=== PATIENT | female | born 1970 | race Caucasian/White ===

== ENCOUNTER 2020-11-07 11:50 | Outpatient (CLI) | payer OTHER, SELFPAY ==
--- NOTE | ~2020-11-07 | MM_ITS ---
EXAMINATION: MM screening chiquita BI w matteo HISTORY: Screening mammogram TECHNIQUE: Craniocaudal and mediolateral oblique 3-D tomosynthesis images were obtained and synthetic 2-D images were generated. CAD analysis was submitted and interpreted. COMPARISON: No prior mammogram is available for comparison at this institution. BREAST PARENCHYMAL COMPOSITION: The breasts are almost entirely fatty. FINDINGS: There is no evidence of suspicious mass, calcification, or architectural distortion to sugg est malignancy in either breast. IMPRESSION: 1. No mammographic evidence of malignancy. 2. Recommend routine screening mammography in one year. BI-RADS Category 1: Negative Reviewed, dictated and finalized at location A. [employer]
== END 2020-11-07 11:51 | disposition home or self-care (01) ==
LOC: ANHIMG 11:54
DX: Z12.31 Encounter for screening mammogram for malignant neoplasm of breast (principal)
CPT/HCPCS: 77063; 77067

== ENCOUNTER 2021-12-30 09:05 | Outpatient (CLI) | payer OTHER, SELFPAY ==
--- NOTE | ~2021-12-30 | MM_ITS ---
EXAMINATION: MM screening chqiuita BI w matteo HISTORY: Screening mammogram TECHNIQUE: Craniocaudal and mediolateral oblique 3-D tomosynthesis images were obtained and synthetic 2-D images were generated. CAD analysis was submitted and interpreted. COMPARISON: November 07, 2020 bilateral screening mammogram BREAST PARENCHYMAL COMPOSITION: The breasts are almost entirely fatty. FINDINGS: There is no evidence of suspicious mass, calcification, or architectural distortion to sugg est malignancy in either breast. There has been no suspicious interval change. IMPRESSION: 1. No mammographic evidence of malignancy. 2. Recommend routine screening mammography in one year. BI-RADS Category 1: Negative Reviewed, dictated and finalized at location A.
== END 2021-12-30 09:06 | disposition home or self-care (01) ==
LOC: ANHIMG 09:06
PROVIDERS: Visit Provider Family Medicine
DX: Z12.31 Encounter for screening mammogram for malignant neoplasm of breast (principal)
CPT/HCPCS: 77063; 77067

== ENCOUNTER 2024-06-16 19:14 | Emergency (ER) | payer OTHER, SELFPAY ==
--- NOTE | ~2024-06-16 | XR_ITS ---
EXAMINATION: XR tibia fibula RT 2V DATE: 06/16/2024 20:37 INDICATION: Right russo pain. Fall. TECHNIQUE: 2 views of right tibia and fibula on 3 radiographs were obtained. COMPARISON: None. FINDINGS: Alignment is normal. No fracture. There is mild knee joint osteoarthritis. No knee joint ef fusion. IMPRESSION: 1. Mild knee joint osteoarthritis. Reviewed, dictated and finalized at location A.
--- NOTE | ~2024-06-16 | XR_ITS ---
EXAMINATION: XR ankle RT min 3V DATE: 06/16/2024 20:37 INDICATION: Right foot injury. TECHNIQUE: 3 views of right ankle were obtained. COMPARISON: None. FINDINGS: Alignment is normal. No fracture. There is mild osteoarthritis of talonavicular joint. Ankl e soft tissue swelling is noted. IMPRESSION: 1. No fracture. Reviewed, dictated and finalized at location A. IMPRESSION: 1. No fracture.
--- NOTE | ~2024-06-16 | XR_ITS ---
EXAMINATION: XR foot RT 2V DATE: 06/16/2024 20:37 INDICATION: Right foot injury. TECHNIQUE: 2 views of right foot were obtained. COMPARISON: None. FINDINGS: Alignment is normal. No fracture. There is mild osteoarthritis of talonavicular joint, firs t metatarsophalangeal joint, and some of the interphalangeal joints. IMPRESSION: 1. Mild polyarticular osteoarthritis. Reviewed, dictated and finalized at location A.
[2024-06-16 19:16] VITALS: BP 157/85; PULSE 95; RESP 16; TEMP 36.6; O2SAT 98
--- NOTE | 2024-06-16 21:44 | ED.LOWEXIN ---
HPI - Extremity Injury (Lower) General Chief Complaint: Extremity Injury, Lower Stated Complaint: fell on Thursday, right knee swelling to right foot Time Seen by Provider: 06/16/24 20:20 Source: patient Mode of arrival: ambulatory Limitations: no limitations History of Present Illness HPI Narrative: This is a 53-year-old female who presents to the ED with chief complaint of right knee injury that occurred 4 days ago. Patient reports that she started to have a lot of edema in the lower leg and bruising to the right foot and ankle that has developed. Reports the foot, ankle and russo are without pain. Pain is located throughout the knee joint. States she is able to bear weight but range of motion is difficulty to swelling and pain. States the swelling is significantly smaller compared to initial injury. Denies fevers, chills, numbness, weakness Review of Systems Review of Systems: All systems as dictated in HPI Exam Narrative: GENERAL: Well-appearing, well-nourished, and in no acute distress. HEAD: Normocephalic, atraumatic. MSK: Left knee and lower extremity are normal. Right knee with moderate swelling. No deformity. Dependent bruising and edema noted throughout the right ankle and foot. Neurovascular intact distally SKIN: Warm, dry, no rash. Ecchymosis present NEURO: Alert and oriented x4. No focal deficits. PSYCH: Normal mood and affect. Course Vital Signs Vital signs: Vital Signs Temperature 98 F 06/16/24 19:16 Pulse Rate 95 06/16/24 19:16 Respiratory Rate 16 06/16/24 19:16 Blood Pressure 157/85 H 06/16/24 19:16 Pulse Oximetry 98 06/16/24 19:16 Oxygen Delivery Room Air 06/16/24 19:16 Temperature 97.0 F L 06/16/24 21:45 Pulse Rate 74 06/16/24 21:45 Respiratory Rate 16 06/16/24 21:45 Blood Pressure 150/83 H 06/16/24 21:45 Pulse Oximetry 98 06/16/24 21:45 Oxygen Delivery Room Air 06/16/24 19:16 MDM - Extremity Injury (Lower) MDM Narrative Medical decision making narrative: This is a 53 yo F who presents to the ED for chief complaint of right lower extremity bruising, swell after injury 4 days ago. Vitals are normal. Exam shows dependent edema, ecchymosis of the foot. Mild swelling and tenderness to the right knee but patient is able to bear weight. Imaging of the right knee, tib-fib, ankle and foot are all clear of any fracture. No acute osseous findings. Most likely suffered a soft tissue injury of the knee and is having dependent bruising and swelling from this. Will give orthopedic referral. Eren wrap given here. Patient will be discharged in stable condition. Supportive measures discussed and return precautions given. Patient is understanding and agreeable with plan for discharge with PCP follow-up. Discharge Plan Discharge Clinical Impression: Injury of knee, right Patient Disposition: Home, Self-Care Condition: Stable Instructions: Antibiotic Form Additional Instructions: Your exam and imaging do not show any fractures. May be a soft tissue injury in the right knee causing a they swelling and pain. Please take ibuprofen 600 mg every 6 hours as needed for pain control and follow-up with the ortho. If you have any new or worsening symptoms please return to the ER for further evaluation. Follow-up/Referrals: Neal,JOSE D Hernandez [Primary Care Provider] - Deep Koenig MD [Physician] - Time of Disposition: 21:47
[2024-06-16 21:45] VITALS: BP 150/83; PULSE 74; RESP 16; TEMP 36.1; O2SAT 98
== END 2024-06-16 21:50 | disposition home or self-care (01) ==
PROVIDERS: Emergency Provider Physician Assistant; PCP Family Medicine
DX: S89.91XA Unspecified injury of right lower leg, initial encounter (principal); M19.071 Primary osteoarthritis, right ankle and foot; M17.11 Unilateral primary osteoarthritis, right knee; W19.XXXA Unspecified fall, initial encounter
CPT/HCPCS: 73590; 73610; 73620; 99284

== ENCOUNTER 2025-01-04 11:57 | Emergency (ER) | payer OTHER, SELFPAY ==
[2025-01-04 12:06] VITALS: BP 139/68; PULSE 80; RESP 18; TEMP 36.7; O2SAT 96
--- NOTE | 2025-01-04 12:34 | ED.EAR ---
HPI - Ear Problem General Chief complaint: Ear Stated complaint: ear pain Time Seen by Provider: 01/04/25 12:34 Source: patient Mode of arrival: ambulatory Limitations: no limitations History of Present Illness HPI Narrative: Here for right ear pain. She reports pain started last night around 7:00 p.m.. She reports pain in the right ear has radiated to her jaw Today. She denies any fevers. Denies recent illness. Denies any sick contacts. works in a factory and wears ear plugs. Related Data Home Medications ?Medication ?Instructions ?Recorded ?Confirmed ?Last Taken ?Type amlodipine 10 mg tablet mg 01/04/25 Unknown History ergocalciferol (vitamin D2) 1,250 01/04/25 Unknown History mcg (50,000 unit) capsule escitalopram oxalate 10 mg tablet mg 01/04/25 Unknown History ferrous sulfate 325 mg (65 mg mg 01/04/25 Unknown History iron) tablet (FeroSul) levothyroxine 75 mcg tablet mcg 01/04/25 Unknown History (Synthroid) meloxicam 15 mg tablet mg 01/04/25 Unknown History rosuvastatin 20 mg tablet mg 01/04/25 Unknown History Allergies Allergy/AdvReac Type Severity Reaction Status Date / Time No Known Allergies Allergy Verified 01/04/25 12:07 Review of Systems Review of Systems: CONSTITUTIONAL: Denies fever, chills, or sweats. EYES: Denies visual changes, redness, or discharge. ENT: Denies rhinorrhea, congestion, sore throat. +Right ear pain as noted in HPI CARDIOVASCULAR: Denies chest pain, palpitations, or edema. RESPIRATORY: Denies cough or dyspnea. GASTROINTESTINAL: Denies abdominal pain, nausea, vomiting, or diarrhea. GENITOURINARY: Denies dysuria or hematuria. SKIN: Denies rash or itching. MUSCULOSKELETAL: Denies back pain, joint pain, or myalgia. NEUROLOGIC: Denies headache, numbness, or weakness. PSYCHIATRIC: Denies anxiety or depression. All other systems reviewed are negative, except as documented in HPI. PMFSH Comments At time of signature, I have reviewed and agree with nursing past medical, surgical, social and family history unless otherwise noted. Please see nursing chart for further information. There is no relevant family history pertinent to the presenting complaint. Exam Narrative: GENERAL: This is a well-nourished, obese patient, in no apparent distress. HEAD: normocephalic, atraumatic. EYES: Sclera clear/white. EARS: External ears normal, auditory canals clear and without drainage, Bilateral TMs erythematous with right TM bulging without perforation. NOSE: External nose normal with no obvious nasal discharge, nares without redness, no rhinorrhea. THROAT: Mucous membranes moist, posterior pharynx clear. NECK: Neck supple, non-tender without lymphadenopathy. CARDIOVASCULAR: Regular rate and rhythm without murmurs, gallops, or rubs. RESPIRATORY: Clear to auscultation. Breath sounds equal bilaterally. No wheezes, rales, or rhonchi. SKIN: warm, Dry, intact with no suspicious lesions or rash, good texture and turgor. NEURO: awake, alert, and oriented to person, place and time. There were no obvious focal neurologic abnormalities. EXTREMITIES: No joint tenderness, effusion, or edema noted. Course Course Level of Care: Express Care Visit Vital Signs Vital signs: Vital Signs Temperature 36.7 C 01/04/25 12:06 Pulse Rate 80 01/04/25 12:06 Respiratory Rate 18 01/04/25 12:06 Blood Pressure 139/68 01/04/25 12:06 Pulse Oximetry 96 01/04/25 12:06 Oxygen Delivery Room Air 01/04/25 12:06 Temperature 36.7 C 01/04/25 12:06 Pulse Rate 80 01/04/25 12:06 Respiratory Rate 18 01/04/25 12:06 Blood Pressure 139/68 01/04/25 12:06 Pulse Oximetry 96 01/04/25 12:06 Oxygen Delivery Room Air 01/04/25 12:06 reviewed Medical Decision Making MDM Narrative Medical decision making narrative: Patient is aware of diagnosis, understands and agrees to treatment plan. Anticipatory guidance was given. Discussed physical exam findings with patient and reviewed prescriptions. Used shared decision making to discuss treatment Options. Patient verbalizes agreement with plan and verbalizes understanding. Patient agrees to follow-up as directed and is aware of reasons to seek care at the emergency department. Discharge instructions were reviewed with the patient, as well as provided in writing per nursing staff. All questions have been answered, and the patient denies any further questions related to discharge or discharge plan. Vital Signs Vital Signs: Vital Signs Temperature 36.7 C 01/04/25 12:06 Pulse Rate 80 01/04/25 12:06 Respiratory Rate 18 01/04/25 12:06 Blood Pressure 139/68 01/04/25 12:06 Pulse Oximetry 96 01/04/25 12:06 Oxygen Delivery Room Air 01/04/25 12:06 Temperature 36.7 C 01/04/25 12:06 Pulse Rate 80 01/04/25 12:06 Respiratory Rate 18 01/04/25 12:06 Blood Pressure 139/68 01/04/25 12:06 Pulse Oximetry 96 01/04/25 12:06 Oxygen Delivery Room Air 01/04/25 12:06 Reviewed Discharge Plan Discharge Clinical Impression: Otitis media Qualifiers: Otitis media type: suppurative Chronicity: acute Laterality: right Recurrence: non-recurrent Spontaneous tympanic membrane rupture: without spontaneous rupture Qualified Code(s): H66.001 - Acute suppurative otitis media without spontaneous rupture of ear drum, right ear Patient Disposition: Home Condition: Stable Instructions: Antibiotic Form, Ear Infection (ED) Additional Instructions: Take antibiotics as directed until complete. Follow printed instructions. You may use Tylenol and ibuprofen as directed on packaging for pain. Nutrition is important - eat small frequent meals. Get lots of rest and drink fluids. Call your Primary Care Doctor today to make a follow-up appointment. Go to the ER for any worsening symptoms or concerns. Patient Language: Sammarinese Prescriptions: New amoxicillin 875 mg tablet 875 mg PO Q12H 10 Days Qty: 20 0RF No Action meloxicam 15 mg tablet levothyroxine [Synthroid] 75 mcg tablet amlodipine 10 mg tablet ferrous sulfate [FeroSul] 325 mg (65 mg iron) tablet ergocalciferol (vitamin D2) 1,250 mcg (50,000 unit) capsule escitalopram oxalate 10 mg tablet rosuvastatin 20 mg tablet Follow-up/Referrals: Neal,JOSE D Hernandez [Primary Care Provider] - Stand Alone Forms: Work/School Release IP Time of Disposition: 12:46
--- OUTSIDE RECORDS SUMMARY | 2025-01-04 13:43 | XMS_ITS | Referral Summary ---
Author Organization [facility] at the Medical Office Building Address [address] [place] [id number] Care Team Providers Care Aerospace Manager Name Role Phone Mary De Jesus NP Primary Care Provider [phone] Encounters Date Type Department Care Team Description 12/29/2024 10:30 AM CDT Office Visit [facility] Primary Care at [address] [phone] Mary De Jesus NP Annual physical exam (Primary Dx); Hypertension, essential; Mixed hyperlipidemia; Vitamin D deficiency; Low ferritin; Class 2 obesity due to excess calories without serious comorbidity with body mass index (BMI) of 38.0 to 38.9 in adult; Severe obesity (HCC); Moderate episode of recurrent major depressive disorder (HCC); Subclinical hypothyroidism; Lymphedema of right lower extremity; Chronic venous insufficiency; Dysesthesia of multiple sites; Acute pain of right knee; Abnormal uterine bleeding; Bilateral groin pain; Need for vaccination; Encounter for screening mammogram for malignant neoplasm of breast 12/08/2024 Telephone [facility] Primary Care at [address] [phone] Mary De Jesus NP 11/24/2024 Telephone [facility] Primary Care at [address] [phone] Mary De Jesus NP 11/22/2024 Telephone [facility] Primary Care at [address] [phone] Mary De Jesus NP 11/22/2024 Telephone [facility] Primary Care at [address] [place] [address] Mary De Jesus BASEBALL HAND SEWER 11/16/2024 Telephone [facility] Primary Care at [address] [place] [address] Mary De Jesus, BASEBALL HAND SEWER 11/15/2024 9:30 AM [employer] Office Visit [facility] Primary Care at [address] [place] [address] Mary De Jesus, BASEBALL HAND SEWER Bilateral groin pain (Primary Dx); Abnormal uterine bleeding; Moderate episode of recurrent major depressive disorder (HCC); Vitamin D deficiency; Hypertension, essential; Class 2 obesity due to excess calories without serious comorbidity with body mass index (BMI) of 37.0 to 37.9 in adult; Severe obesity (HCC); Lymphedema of right lower extremity; Subclinical hypothyroidism; Low ferritin; Need for vaccination 11/11/2024 3:15 PM [employer] Therapy [facility] Medical Office Bldg 1 OP Physical Therapy [address] [place] [phone] Range, Elizabeth, PRINT BINDING AND FINISHING WORKER Edema of right lower leg (Primary Dx); Acute pain of right knee 11/11/2024 Plan of Care Documentation [facility] Medical Office Bldg 1 OP Physical Therapy [address] [place] [phone] 11/09/2024 2:45 PM [employer] Therapy [facility] Medical Office Bldg 1 OP Physical Therapy [address] [place] [phone] Bernadette Jack, PT Edema of right lower leg (Primary Dx); Acute pain of right knee 11/03/2024 9:45 AM [employer] Therapy [facility] Medical Office Bldg 1 OP Physical Therapy [address] [place] [phone] Bernadette Jack, PT Edema of right lower leg (Primary Dx); Acute pain of right knee 11/01/2024 12:45 PM [employer] Therapy [facility] Medical Office Bldg 1 OP Physical Therapy [address] [place] [phone] Range, Elizabeth, PRINT B[employer]ING AND FINISHING WORKER Edema of right lower leg (Primary Dx); Acute pain of right knee 10/27/2024 2:45 PM [employer] Therapy [facility] Medical Office Bldg 1 OP Physical Therapy [address] [place] [phone] Range, Elizabeth, PRINT B[employer]ING [employer] FINISHING WORKER Edema of right lower leg (Primary Dx); Acute pain of right knee 10/26/2024 Telephone [facility] Primary Care at [address] [phone] Mary De Jesus NP 10/25/2024 Telephone [facility] Primary Care at [address] [phone] Mary De Jesus NP Additional Services Or Orders 10/25/2024 9:45 AM [facility] Medical Office Bldg 1 OP Physical Therapy [address] [place] [phone] Bernadette Jack Tamiko, PT Edema of right lower leg (Primary Dx); Acute pain of right knee 10/21/2024 2:45 PM [facility] Medical Office Bldg 1 OP Physical Therapy [address] [place] [phone] Range, Elizabeth, PRINT B[employer]ING AND FINISHING WORKER Edema of right lower leg (Primary Dx); Acute pain of right knee 10/18/2024 3:15 PM [employer] [facility] Medical Office Bldg 1 OP Physical Therapy [address] [place] [phone] Range, Elizabeth, PRINT BINDING AND FINISHING WORKER Edema of right lower leg (Primary Dx); Acute pain of right knee 10/14/2024 9:45 AM [employer] [facility] Medical Office Bldg 1 OP Physical Therapy [address] [place] [phone] Bernadette Jack, PT Acute pain of right knee (Primary Dx); Edema of right lower leg 10/14/2024 9:15 AM [employer] Therapy [facility] Office [facility] 1 OP Physical Therapy [address] [place] [phone] Range, Elizabeth, PRINT BINDING AND FINISHING WORKER Acute pain of right knee (Primary Dx); Edema of right lower leg 10/12/2024 10:30 AM [employer] Office Visit [facility] Vascular at [address] [place] [address] Rod Nance MD Chronic venous insufficiency (Primary Dx); Pain and swelling of right lower extremity; Lymphedema of right lower extremity; Mixed hyperlipidemia; Hypertension, essential 10/11/2024 8:30 AM [facility] Therapy [facility] Office [facility] 1 OP Physical Therapy [address] [place] [phone] Range, Elizabeth, PRINT BINDING AND FINISHING WORKER Acute pain of right knee (Primary Dx); Edema of right lower leg 10/07/2024 10:45 AM [facility] Therapy [facility] Office [facility] 1 OP Physical Therapy [address] [place] [phone] Range, Elizabeth, PRINT B[employer]ING AND FINISHING WORKER Acute pain of right knee (Primary Dx); Edema of right lower leg from Last 3 Months Allergies No known active allergies Medications ascorbic acid (VITAMIN C) 250 mg tabletIndications: Iron deficiency Take 1 tablet (250 mg total) by mouth every other day With iron 45 tablet 3 4 Active Bacillus coagulans 250 million cell tablet,chewable Take by mouth Active miscellaneous medical supply miscIndications:Ed jacky of right lower leg,Edema of left lower leg 1 each daily Wear daily 2 each 5 Active levothyroxine (SYNTHROID) 75 mcg tabletIndications: Subclinical hypothyroidism Take 1 tablet (75 mcg total) by mouth daily 90 tablet 1 5 Active amLODIPine (NORVASC) 10 mg tablet Take 1 tablet (10 mg total) by mouth daily 90 tablet 1 5 025 Active escitalopram (LEXAPRO) 10 mg tabletIndications: Mild depression Take 1 tablet (10 mg total) by mouth daily 90 tablet 1 5 025 Active ferrous sulfate 325 mg (65 mg of elemental iron) tabletIndications: Iron Deficiency Anemia Take 325mg ferrous sulfate every other day. Take with 250mg ascorbic acid tablet of half a glass of orange juice to enhance absorption. Take two hours before, or four hours after, ingestion of antacids/heart burn. Take separately from calcium-contai jesenia foods and beverages (milk), calcium supplements, cereals, dietary fiber, tea, coffee, and eggs. 90 tablet 1 5 Active meloxicam (MOBIC) 15 mg tabletIndications: Bilateral groin pain Take 1 tablet (15 mg total) by mouth daily 90 tablet 1 5 025 Active rosuvastatin (CRESTOR) 20 mg tabletIndications: Mixed hyperlipidemia Take 1 tablet (20 mg total) by mouth daily 90 tablet 1 5 Active ergocalciferol (VITAMIN D) 50,000 unit capsuleIndications :Vitamin D deficiency Take 1 capsule (50,000 Units total) by mouth every 14 (fourteen) days TAKE 1 CAPSULE BY MOUTH EVERY OTHER WEEK 6 capsule 1 5 025 Active Active Problems Problem Noted Date Diagnosed Date Lymphedema of right lower extremity 11/16/2024 Assessment & Plan (12/29/2024 10:58 AM CDT): UncontrolIed Encouraged to keep legs elevated when able and wear compression stockings Assessment & Plan (11/16/2024 7:56 AM [employer]): UncontrolIed Encouraged to continue PT as recommended Awaiting compression stockings Abnormal uterine bleeding 11/16/2024 Assessment & Plan (12/29/2024 11:03 AM CDT): Uncontrolled Previously referred to gynecology, encouraged to call and make an apppointment Assessment & Plan (11/16/2024 7:56 AM [employer]): Explained likely premenopausal Referral made to gynecology Bilateral groin pain 11/16/2024 Assessment & Plan (12/29/2024 11:04 AM CDT): Controlled Continued on meloxicam Assessment & Plan (11/16/2024 7:58 AM [employer]): Reviewed xrays, CT scan, and venous doppler results of right LE w/patient Started on meloxicam Supportive care measures discussed Return precautions given Low ferritin 11/16/2024 Assessment & Plan (12/29/2024 10:47 AM CDT): Controlled Continued on ferrous sulfate daily Assessment & Plan (11/16/2024 8:01 AM [employer]): Controlled Continued on ferrous sulfate daily Severe obesity 11/15/2024 Assessment & Plan (12/29/2024 10:47 AM CDT): Worsened Encouraged to: Make healthy food choices, limiting intake of concentrated sweets, cholesterol, and saturated fat Monitor daily caloric intake and portion sizes Exercise most days of the week for a goal of at least 150 minutes of exercise per week Assessment & Plan (11/16/2024 7:54 AM [employer]): Improved Encouraged to: Make healthy food choices, limiting intake of concentrated sweets, cholesterol, and saturated fat Monitor daily caloric intake and portion sizes Exercise most days of the week for a goal of at least 150 minutes of exercise per week Chronic venous insufficiency 10/17/2024 Assessment & Plan (12/29/2024 10:57 AM CDT): UncontrolIed Encouraged to keep legs elevated when able and wear compression stockings Assessment & Plan (10/17/2024 3:05 PM [employer]): Clinically has some evidence of chronic venous insufficiency with the start of some lipodermatosclerosis. Her swelling has improved with resolution of what sounds like a traumatic hematoma. I discussed the importance of compression therapy, can follow up me as needed. Acute pain of right knee 07/01/2024 Assessment & Plan (12/29/2024 11:02 AM CDT): Controlled Continued on meloxicam Assessment & Plan (07/01/2024 4:10 PM CDT): Acute Reviewed ER report from [facility] dated 06/16/2024 Ordered MRI right knee Dysesthesia of multiple sites 04/05/2024 Assessment & Plan (12/29/2024 11:01 AM CDT): Controlled Continued on meloxicam 15 mg daily Can consider gabapentin, pregabalin, amitriptyline, or duloxetine if symptoms continue Assessment & Plan (04/05/2024 1:22 PM CDT): New diagnosis, affecting both legs and sometimes back Reviewed labs dated 11/12/2023, 01/06/2024, and 02/13/2024 Can consider gabapentin, pregabalin, amitriptyline, or duloxetine if symptoms continue Subclinical hypothyroidism 12/03/2023 Assessment & Plan (12/29/2024 10:45 AM CDT): Controlled Continued on levothyroxine Assessment & Plan (11/16/2024 8:00 AM [employer]): Controlled Continued on levothyroxine Assessment & Plan (12/03/2023 8:26 AM CDT): New diagnosis, symptomatic with reported fatigue and weight gain, although has recently lost weight Gave option to monitor or start medication, would like to start levothyroxine, Rx sent to pharmacy per request Advised to get previously ordered non-fasting lab work done in 4-8 weeks Need for vaccination 10/21/2022 Assessment & Plan (12/29/2024 10:45 AM CDT): Discussed screening/vaccination in depth and patient understands all risk and benefits associated with proposed therapies and currently declines, has been encouraged to call if changes mind. Assessment & Plan (11/16/2024 8:01 AM [employer]): Discussed screening/vaccination (hepatitis B series) in depth and patient understands all risk and benefits associated with proposed therapies and currently declines, has been encouraged to call if changes mind. Assessment & Plan (12/05/2023 11:47 AM CDT): Recommended Shingrix series, considering Assessment & Plan (10/21/2022 5:13 AM [employer]GR[employer]HER [employer]): Tdap given. Recurrent major depression 10/20/2022 Assessment & Plan (12/29/2024 10:54 AM CDT): Controlled Continued on Lexapro, declined increase in dose of medicaton Advised if suicidal ideation or thoughts of harming self or others, to go to ER and/or call [phone] for assistance, agreed to contract for safety Assessment & Plan (11/16/2024 7:55 AM [employer]GR[employer]HER [employer]): Controlled per patient report Reviewed PHQ-9=5, DARLYN-7=2 Continued on Lexapro, declined increase in dose of medicaton Advised if suicidal ideation or thoughts of harming self or others, to go to ER and/or call [phone] for assistance, agreed to contract for safety Assessment & Plan (12/03/2023 8:25 AM CDT): Chronic, controlled on medication Reviewed PHQ-9=6, DARLYN-7=3 Continued on Lexapro, declined increase in dose of medicaton Advised if suicidal ideation or thoughts of harming self or others, to go to ER and/or call [phone] for assistance, agreed to contract for safety Assessment & Plan (10/21/2022 5:07 AM [employer]): Chronic, stable, controlled with medication-continued on Lexapro, refills sent to pharmacy per patient request. PHQ-9=5, DARLYN-7=1 Encounter for well woman abdelrahman m with routine gynecological exam 12/07/2020 Assessment & Plan (12/07/2020 12:56 PM CDT): Well woman exam and cervical cancer screening done today with guidelines recommending pap smears for women 30-65 years old every 3 years or every 5 years if co- screening for HPV. Discussed mammogram screening yearly beginning at age 40 years. Encouraged to continue monthly breast self exams. Screening for human papillomavirus 12/07/2020 Assessment & Plan (12/07/2020 12:57 PM CDT): HPV screening done with cervical pap smear. Cervical cancer screening 12/07/2020 Assessment & Plan (12/07/2020 12:57 PM CDT): Cervical pap smear done today. Vitamin D deficiency 12/07/2020 Assessment & Plan (12/29/2024 10:45 AM CDT): Controlled Continued vitamin D5 05240 IU every other week Assessment & Plan (11/16/2024 7:54 AM [employer]): Controlled Continued on vitamin D 87236 international units every other week Assessment & Plan (05/30/2024 12:59 PM CDT): Stable, controlled with prescription supplementation Continued on vitamin D 60431 international units every other week Assessment & Plan (12/03/2023 7:50 AM CDT): Stable, controlled with prescription supplementation Continued on vitamin D 97184 international units every other week Assessment & Plan (10/21/2022 5:21 AM [employer]): Chronic, stable, controlled with prescription supplement-encouraged to continue vitamin-D 55009 IU every other week with a meal. Ordered vitamin-D 25 OH to be done prior to next visit. Assessment & Plan (10/19/2021 7:32 AM [employer]GR[employer]HER [employer]): Chronic, stable, improved at last check, on weekly [id number] on weekly vitamin-D and ordered nonfasting vitamin D level to re-evaluate efficacy of treatment. Assessment & Plan (04/13/2021 7:41 AM CDT): Chronic, improved-continued on vitamin D 50,000 international units weekly, refills sent to pharmacy. Will recheck vitamin D in approximately 4-6 months. Assessment & Plan (12/07/2020 12:58 PM CDT): Chronic, uncontrolled, recently started on weekly vitamin D supplementation-encouraged to continue weekly prescription vitamin D, ordered repeat vitamin D 25OH to be done in 6 months. Class 2 obesity due to exces s calories without serious comorbidity with body mass index (BMI) of 38.0 to 38.9 in adult 12/07/2020 Assessment & Plan (12/29/2024 10:45 AM CDT): Worsened Encouraged to: Make healthy food choices, limiting intake of concentrated sweets, cholesterol, and saturated fat Monitor daily caloric intake and portion sizes Exercise most days of the week for a goal of at least 150 minutes of exercise per week Assessment & Plan (11/16/2024 7:54 AM [employer]HER [employer]): Improved Encouraged to: Make healthy food choices, limiting intake of concentrated sweets, cholesterol, and saturated fat Monitor daily caloric intake and portion sizes Exercise most days of the week for a goal of at least 150 minutes of exercise per week Assessment & Plan (05/30/2024 1:17 PM CDT): Chronic, stable Encouraged to: Make healthy food choices, limiting intake of concentrated sweets, cholesterol, and saturated fat Monitor daily caloric intake and portion sizes Exercise most days of the week for a goal of at least 150 minutes of exercise per week Assessment & Plan (04/05/2024 1:24 PM CDT): Chronic, wprsened Encouraged to: Make healthy food choices, limiting intake of concentrated sweets, cholesterol, and saturated fat Monitor daily caloric intake and portion sizes Exercise most days of the week for a goal of at least 150 minutes of exercise per week Assessment & Plan (12/03/2023 7:47 AM CDT): Chronic, improved Encouraged to: Make healthy food choices, limiting intake of concentrated sweets, cholesterol, and saturated fat Monitor daily caloric intake and portion sizes Exercise most days of the week for a goal of at least 150 minutes of exercise per week Assessment & Plan (10/21/2022 5:12 AM [employer]): Chronic, worsening, without series comorbidity-encouraged to monitor daily caloric intake and portion sizes and to exercise most days of the week for a goal of at least 150 minutes per week. Assessment & Plan (12/07/2020 1:04 PM CDT): Chronic, slight improvement since last visit-encourage a diet low in saturated/animal fats and high in fruits, vegetables, legumes, whole grains, and nuts with goal to exercise for 15-20 minutes most days of the week. Annual physical exam 11/05/2020 Assessment & Plan (12/29/2024 10:44 AM CDT): Reviewed past and current medical history, surgical history, social history, family history, current medications, and allergies. The chart was updated to identify any changes in these areas. Assessment & Plan (12/03/2023 7:45 AM CDT): Reviewed past and current medical history, surgical history, social history, family history, current medications, and allergies. The chart was updated to identify any changes in these areas. A ROS and PE were performed. Medications and labs were ordered and referrals were made. Discussed screening colonoscopy, well woman exam/cervical cancer screening, screening mammogram, monthly breast self-exams, and recommended immunizations. Patient will follow-up in 6 months for further evaluation and management or sooner if needed. Assessment & Plan (10/21/2022 5:11 AM [employer]GR[employer]HER [employer]): Reviewed past and current medical history, surgical history, social history, family history, current medications, and allergies. A ROS and PE were performed. Medications were refilled and labs and a screening mammogram were ordered. Discussed well woman exam/cervical cancer screening, screening mammogram, monthly breast self-exams, and recommended immunizations. Patient will follow-up in 6 months for further evaluation and management or sooner if needed. Assessment & Plan (11/05/2020 11:41 AM STENOGR[employer]HER [employer]): Reviewed past and current medical history, surgical history, social history, family history, current medications, and allergies. A ROS and PE were performed. Medication and labs were ordered. Discussed screening colonoscopy (Cologuard ordered), well woman exam/cervical cancer screening (recommended at follow-up visit in 4 weeks), screening mammogram (order given), monthly breast self-exams, and recommended immunizations. Patient will follow-up in 4 weeks for further evaluation and management or sooner if needed. Hypertension, essential 11/05/2020 Assessment & Plan (12/29/2024 10:44 AM CDT): Controlled Continued on amlodipine 10 mg daily Assessment & Plan (11/16/2024 7:54 AM [employer]HER [employer]): Controlled with prior increase in dose of medication Continued on amlodipine 10 mg daily Assessment & Plan (10/17/2024 3:06 PM [employer]GR[employer]): Stable amlodipine Assessment & Plan (05/30/2024 1:18 PM CDT): Chronic, improved, but uncontrolled on medication Increased dose of amlodipine from 5 mg to 10 mg daily Instructed to monitor blood pressure at home and give update in 3-4 weeks Assessment & Plan (04/05/2024 1:28 PM CDT): Episodic, worsened, uncontrolled at today's visit, patient attributes to recent weight gain, states blood pressure improves with weight loss Advised to check blood pressure upon arriving home today and to notify office of result. If blood pressure is normal, instructed to continue to monitor for the next week, reporting average systolic/diastolic readings to the office. If blood pressure reading is high upon returning home, will consider starting on blood pressure medication for better control. Assessment & Plan (12/03/2023 8:24 AM CDT): Stable, controlled without medication Will continued to monitor for stability Assessment & Plan (10/21/2022 5:22 AM [employer]GR[employer]): Chronic, worsened compared to 1 year prior, not on medication-encouraged to monitor blood pressure when able and to decrease sodium in diet, not adding salt when cooking or at the table. Will return in 6 months for follow-up visit. Ordered CMP. Assessment & Plan (10/19/2021 7:30 AM [employer]): Chronicity unknown, however controlled without medication last 2 visits-will continue to monitor. Assessment & Plan (12/07/2020 1:01 PM CDT): Chronic, improved since last visit, not on medication, likely related to situational stressors and depression, also improved since last visit-will continue and discuss medication if/when appropriate. Assessment & Plan (11/05/2020 11:43 AM [employer]HER [employer]): New onset, possibility related to reported recent weight gain and situational stressors-advised to continue to monitor blood pressure at home, decrease sodium in diet (don't add when cooking or at the table, avoid processed foods and dining out), and to continue with weight loss efforts (continue consultation with Dr. Gupta, specialist in Lifestyle Medicine). Encounter for screening mamm ogram for malignant neoplasm of breast 11/05/2020 Assessment & Plan (10/21/2022 5:10 AM [employer]HER [employer]): Ordered screening mammogram. Assessment & Plan (10/19/2021 7:28 AM [employer]GR[employer]HER [employer]): Ordered screening mammogram due on or after 11/08/2021. Assessment & Plan (11/05/2020 11:31 AM [employer]GR[employer]HER [employer]): Screening mammogram ordered, external order given, advised to call office within 1-2 weeks if she has not been notified of her results. Colon cancer screening 11/05/2020 Assessment & Plan (11/05/2020 11:30 AM ST[employer]GR[employer]HER [employer]): Cologuard ordered, informed to notify office if she has not received her kit in the mail in the next 2 weeks. Hyperlipidemia Assessment & Plan (12/29/2024 10:52 AM CDT): Uncontrolled Continued on rosuvastatin, offered increase in dose rosuvastatin, declined Recommended low fat/low cholesterol diet, high in fiber and plant PRO (tofu, soybeans, quinoa, black beans, chickpeas/garbanzo beans, lentils, hemp/kenrick seeds, nuts, red kidney beans, soy milk, peas, amaranth), with exercise most days of the week, for a minimum of 150 minutes of exercise/week Assessment & Plan (10/17/2024 3:05 PM ST[employer]GR[employer]HER [employer]): Stable continue Crestor Assessment & Plan (12/03/2023 7:48 AM CDT): Chronic, with minimally elevated LDL (105), elevated, stable triglycerides (262) Continue rosuvastatin, declined addition of fenofibrate Increase exercise with focus of incorporating foods high in omega 3s into diet Assessment & Plan (10/21/2022 5:10 AM [employer]GR[employer]HER [employer]): Chronic, stable, uncontrolled at last check, on medication-encouraged to continue rosuvastatin 20 mg daily, refills sent to pharmacy per request, and low-fat/low-cholesterol diet high in fiber. Ordered lipid panel to be done prior to next visit. Assessment & Plan (10/19/2021 7:30 AM [employer]): Chronic, greatly improved upon recheck in 04/2021, now on medication, reports having had lipid panel done at work recently-continued on atorvastatin 20 mg once daily. Requested that she forward lipid results from work when available to office for review. Assessment & Plan (04/13/2021 7:43 AM CDT): Chronic, worsened-started on atorvastatin, will recheck lipid panel in 4 weeks, and referred to cardiology for evaluation of recent episode of cramp -like sensation in chest. Assessment & Plan (12/07/2020 1:03 PM CDT): New diagnosis, not on medication-recommend a diet low in saturated/animal fats and high in fruits, vegetables, legumes, whole grains, and nuts with goal of exercising for 15-20 minutes most days of the week. Ordered lipid panel to be repeated in 6 months. Assessment & Plan (11/05/2020 11:42 AM [employer]): Chronicity and stability unknown-ordered lipid panel. Resolved Problems Problem Noted Date Diagnosed Date Resolved Date Edema of right lower leg 06/30/202401/2025 Assessment & Plan (07/01/2024 4:12 PM CDT): Acute Started on Eliquis 10 mg BID Ordered venous doppler right lower extremity Lower leg mass, right 04/05/20242024 Assessment & Plan (05/30/2024 1:11 PM CDT): Chronicity unknown, states present since the beginning of the year, stable in size per patient report Reviewed ultrasound right lower extremity, possible hematoma Ordered CT right lower extremity Assessment & Plan (04/05/2024 1:16 PM CDT): Chronicity unknown, states present for at least 4 months, stability unknown Ordered ultrasound right lower extremity Dysgeusia 10/19/2021 10/21/2022 Assessment & Plan (10/19/2021 7:49 AM [employer]): New problem, thinks related to 1 of her 2 new medications, however symptoms started at least 5-6 months after starting Lexapro, so unlikely Lexapro is the cause of her symptom-advised can stop atorvastatin for 1-2 weeks to see if bad taste in mouth resolves, if not, advised to restart atorvastatin, and if taste does resolve with cessation, instructed to restart and if bad taste returns, to notify office for alternatives to treatment. If unrelated to atorvastatin which likely it isn't, will try a trial of antibiotic since reports a b ad tooth, however states bad taste started before her tooth became symptomatic. Eustachian tube dysfunction, right 10/18/2021 12/29/2024 Assessment & Plan (05/30/2024 1:17 PM CDT): Acute, with history of similar symptoms in 10/2021, resolved with Medrol Dosepak and Flonase, however states side effect of rhinorrhea with Flonase Started on prednisone 20 mg twice daily for 5 days Advised if symptoms do not resolve with treatment, to notify clinic and will place referral to ENT Assessment & Plan (10/19/2021 7:28 AM [employer]): Acute-started on a Medrol Dosepak as directed and Flonase 2 sprays each nostril once daily. Recommended follow-up in 6 months for annual exam and in office breast exam, sooner if needed, especially if ear symptoms do not improve or worsen despite treatment. Chest pain 04/13/2021 10/18/2021 Assessment & Plan (04/13/2021 7:40 AM CDT): Recent occurrence, currently asymptomatic-referred cardiology for further evaluation and management. Instructed to go to ER if symptoms recur. History of vitamin D deficiency 11/05/2020 04/13/2021 Assessment & Plan (11/05/2020 11:36 AM [employer]): Chronicity, stability unknown-will check vitamin D25OH. Polydipsia 11/05/2020 10/18/2021 Assessment & Plan (11/05/2020 11:36 AM [employer]): Chronic, stable-will check CMP. Fatigue 11/05/2020 10/18/2021 Assessment & Plan (11/05/2020 11:36 AM [employer]): Chronic, stable, attributes to working a lot, however has history of iron deficiency anemia-will check CBC and also TSH with reflex to T4. History of iron deficiency anemia 11/05/2020 10/18/2021 Assessment & Plan (11/05/2020 11:35 AM [employer]): Chronicity, stability unknown-will check CBC. Weight gain 11/05/2020 12/03/2023 Assessment & Plan (10/21/2022 5:22 AM [employer]): Chronic obesity, worsening-encouraged to monitor daily caloric intake and portion sizes and to exercise most days of the week. Ordered CMP and hemoglobin A1c. Assessment & Plan (11/05/2020 11:35 AM [employer]): Chronicity, stability unknown, but reports recent weight gain, states I've never weigh this much in my life -encouraged her to continue to eat a diet rich in fruits and vegetables and discussed scheduling an appointment with Dr. Gupta, specialist in Lifestyle Medicine. Ordered TSH with reflex to T4. Immunizations Immunization Administration Dates Next Due Influenza, Unspecified 05/30/2024(Deferr ed: Patient Refused),06/14/2023(Deferred: Patient Refused),10/20/2022(Deferred: Patient Refused),06/14/2022(Deferred: Patient Refused) Tdap 10/20/2022 ZOSTER Recombinant 12/29/2024 Social History Tobacco Use Types Packs/Day Years Used Date Smoking Tobacco: Former Cigarettes Q uit: 11/05/2001 Tobacco Cessation:Counseling Given: Not Answered PHQ-2 Answer Date Recorded PHQ-2 Total Score (If total score is 3 or more points, staff should administer the PHQ-9) 0 11/15/2024 PHQ-9 Answer Date Recorded PHQ-9 Total Score 5 11/15/2024 Personal Safety Answer Date Recorded Have you ever been in or are you currently in a harmful physical or emotional relationship or is someone making you feel afraid or unsafe? Denies 08/14/2023 Comments No Sex and Gender Information Value Date Recorded Sex Assigned at Not on file Legal Sex Female 12:47 AM [employer] Gender Identity Not on file Sexual Orientation Not on file Last Filed Vital Signs Vital Sign Reading Time Taken Comments Blood Pressure 132/76 12/29/2024 10:30 AM CDT Pulse 75 12/29/2024 10:30 AM CDT Temperature 36.8 C (98.2 F) 12/29/2024 10:30 AM CDT Respiratory Rate 14 12/29/2024 10:3 0 AM CDT Oxygen Saturation 96% 12/29/2024 10: 30 AM CDT Inhaled Oxygen Concentration - - Weight 105.7 kg (233 lb 1.6 oz) 025 10:30 AM CDT Height 166 cm (5' 5.35 ) 12/29/2024 10: 30 AM CDT Body Mass Index 38.37 12/29/2024 10:30 AM CDT Plan of Treatment Not on file Procedures Procedure Name Priority Date/Time Associated Diagnosis Comments HEPATITIS C ANTIBODY Routine 08/30/2024 10:24 AM [employer] Encounter for hepatitis C screening test for low risk patient SCREENING MAMMOGRAM BILATERAL W RALPH Schedule Routine, Read Routine (OP Routine) 03/07/2024 8:40 AM CDT Encounter for screening mammogram for malignant neoplasm of breast STOOL DNA COLOGUARD Routine 01/05/2024 9:20 AM CDT Colon cancer screening THINPREP PAP WITH HPV Routine 12/07/2020 11:40 AM CDT from Last 3 Months or Most Recently Relevant to Health Maintenance Results * Hepatitis C antibody Blood (08/30/2024 10:24 AM [employer]) Hep C Ab NON-REACTI VE NON-REACT INOCENCIO [facility] Comment: HCV antibody was non-reactive. There is no laboratory evidence of HCV infection. In most cases, no further action is required. However, if recent HCV exposure is suspected, a test for HCV RNA (test code 96702) is suggested. For additional information please refer to http://education.[employer]/faq/WGI76f1 (This link is being provided for informational/ educational purposes only.) Blood 08/30/2024 10:2 4 AM [employer] 08/30/2024 10:27 AM [employer] Narrative [facility] - 08/31/2024 8:43 AM [employer] FASTING:YES FASTING: YES us Mary De Jesus NP LAB MICROBIOLOGY - GENERAL ORDER YESSY Final Result [facility] [address] [place] [address] * Screening Mammogram Bilateral W Ralph (03/07/2024 8:40 AM CDT) Anatomical Region Laterality Modality Breast Bilateral Mammography Impressions 03/09/2024 11:14 AM CDT BI-RADS ATLAS category (overall): 1 - Negative There is no mammographic evidence of malignancy. A 1 year screening mammogram is recommended. The patient has been or will be contacted. We recommend annual screening mammography for women at average risk of breast cancer beginning at age 40, based on guidelines of the [employer] (ACR Practice Parameter for the Performance of Screening and Diagnostic Mammography) and [place] [employer]. For women with and elevated risk of breast cancer, please refer to the ACR Practice Parameter for specific screening recommendations. The patient will be entered into a reminder system with a target due date of 1 year for her next screening exam. Narrative 03/09/2024 11:14 AM CDT Screening Mammogram Bilateral W Ralph: 03/07/24 The study was acquired using full field digital technology and interpreted from soft copy. 2D digital mammographic views, as well as 3D digital tomosynthesis were performed in the CC and MLO projections. CLINICAL: Encounter for screening mammogram for malignant neoplasm of breast. No relevant medical history has been documented for this patient. No known family history of breast cancer. COMPARISONS: 12/30/2021 Breast Imaging Screening Outside Reference 11/07/2020 Breast Imaging Screening Outside Reference 02/19/2013 Screening Mammogram 2D Bilateral BREAST TISSUE: The breasts are almost entirely fatty. FINDINGS: No suspicious masses, suspicious calcifications, or other suspicious findings are seen within either breast. There has been no suspicious change. us Mary De Jesus NP IMG MAMMO PROCEDURES Final Resul t * Stool DNA - Cologuard (01/05/2024 9:20 AM CDT) Stool DNA - Cologuard Negative Negative [facility] (CLIA #:[id number]) Comment: NEGATIVE TEST RESULT. A negative Cologuard result indicates a low likelihood that a colorectal cancer (CRC) or advanced adenoma (adenomatous polyps with more advanced pre-malignant features) is present. The chance that a person with a negative Cologuard test has a colorectal cancer is less than 1 in 1500 (negative predictive value >99.9%) or has an advanced adenoma is less than 5.3% (negative predictive value 94.7%). These data are based on a prospective cross-sectional study of 10,000 individuals at average risk for colorectal cancer who were screened with both Cologuard and colonoscopy. (Gertrudis Abbott, N Engl J Med 2014;370(14):7703-3925) The normal value (reference range) for this assay is negative. COLOGUARD RE-SCREENING RECOMMENDATION: Periodic colorectal cancer screening is an important part of preventive healthcare for asymptomatic individuals at average risk for colorectal cancer. Following a negative Cologuard result, the [place] [employer] and U.S. Multi-Society Task Force screening guidelines recommend a Cologuard re-screening interval of 3 years. References: [place] [employer] Guideline for Colorectal Cancer Screening: https://www.cancer.org/cancer/frsuk-qlwuji-wmladx/nxraobdsv-clrrliuuu-mdtevuy/ac s-rec ommendations.html.; Aroldo DK, Kenny CASILLAS, Ari BahK, Colorectal Cancer Screening: Recommendations for Physicians and Patients from the U.S. Multi-Society Task Force on Colorectal Cancer Screening , Am J Gastroenterology 2017; 112:7133-0175. TEST DESCRIPTION: Composite algorithmic analysis of stool DNA-biomarkers with hemoglobin immunoassay. Quantitative values of individual biomarkers are not reportable and are not associated with individual biomarker result reference ranges. Cologuard is intended for colorectal cancer screening of adults of either sex, 45 years or older, who are at average-risk for colorectal cancer (CRC). Cologuard has been approved for use by the U.S. FDA. The performance of Cologuard was established in a cross sectional study of average-risk adults aged 50-84. Cologuard performance in patients ages 45 to 49 years was estimated by sub-group analysis of near-age groups. Colonoscopies performed for a positive result may find as the most clinically significant lesion: colorectal cancer [4.0%], advanced adenoma (including sessile serrated polyps greater than or equal to 1cm diameter) [20%] or non- advanced adenoma [31%]; or no colorectal neoplasia [45%]. These estimates are derived from a prospective cross-sectional screening study of 10,000 individuals at average risk for colorectal cancer who were screened with both Cologuard and colonoscopy. (Gertrudis Abbott, N Engl J Med 2014;370(14):2571-9472.) Cologuard may produce a false negative or false positive result (no colorectal cancer or precancerous polyp present at colonoscopy follow up). A negative Cologuard test result does not guarantee the absence of CRC or advanced adenoma (pre-cancer). The current Cologuard screening interval is every 3 years. ([place] [employer] and U.S. Multi-Society Task Force). Cologuard performance data in a 10,000 patient pivotal study using colonoscopy as the reference method can be accessed at the following location: www.mywaves.[employer]/results. Additional description of the Cologuard test process, warnings and precautions can be found at www.cologuard.com. Stool 01/05/2024 9:20 AM CDT 01/06/2024 9:44 AM CDT Mary De Jesus [employer] LAB BODY FLUIDS AND STOOLS ORDER YESSY Final Result [facility] (CLIA #:[id number]) [place] [address] * ThinPrep Pap with HPV (12/07/2020 11:40 AM CDT) Pap test 12/07/2020 11:4 0 AM CDT 12/10/2020 10:02 AM CDT Narrative 12/13/2020 10:09 AM CDT [facility] Department of Pathology [address] [place] [id number] Final Report with Addendum Patient Name: JAYDE QUINTANA [address]: [address] [place] [address] Gender: F : 1970 (Age: 50) Service: Laboratory Location: Lab [facility] #: [id number] Patient Type: Ref Lab Taken: 12/07/2020 Received: 12/10/2020 Accessioned:: 12/11/2020 Reported: 12/13/2020 [facility] Diagnosis: Source of Specimen: Screening ThinPrep Imaged Pap w/HPV Specimen Adequacy: - Satisfactory for evaluation; endocervical/transformation zone component present General Category: - Negative for intraepithelial lesion or malignancy AARON Hernandez(ASCP) Report Electronically Reviewed and Signed Out By AARON Hernandez(ASCP) 12/13/2020 10:09:15 Addenda: HPV Test Interpretation NEGATIVE for types 16, 18, 31, 33, 35, 39, 45, 51, 52, 56, 58, 59, 66 and 68. Test performed utilizing Gen-Probe Aptima assay. AARON Sung(ASCP) Report Electronically Reviewed and Signed Out By AARON Hernandez(ASCP) 12/11/2020 14:48:46 Specimen(s) Received: A: Screening ThinPrep Imaged Pap w/HPV Clinical History: The Pap test is a screening test used to aid in the detection of cervical cancer and its precursors. It should not be the sole means by which malignant and premalignant lesions are diagnosed. Both false negative and false positive results may occur. It also has poor sensitivity for the detection of endometrial lesions and should not be used to evaluate suspected endometrial abnormalities. For these reasons it is most important to obtain Pap tests at regular intervals. The performance characteristics of some immunohistochemical stains, fluorescence in-situ hybridization tests and immunophenotyping by flow cytometry cited in this report (if any) were determined by the Surgical Pathology Department at [facility] as part of an ongoing construction quality control manager program and in compliance with federally mandated regulations drawn from the Clinical Laboratory Improvement Act of 1988 (CLIA '88). Some of these tests rely on the use of analyte specific reagents and are subject to specific labeling requirements by the US Food and Drug Administration. Such diagnostic tests may only be performed in a facility that is certified by the Department of Health and Human Services as a high complexity laboratory under CLIA '88. The FDA has determined that such clearance or approval is not necessary. This test is used for clinical purposes. It should not be regarded as investigational or for research. Nevertheless, federal rules concerning the medical use of analyte specific reagents require that the following disclaimer be attached to the report: This test was developed and its performance characteristics determined by the Surgical Pathology Department [facility]. It has not been cleared or approved by the U. S. Food and Drug Administration. Mary De Jesus [employer] LAB CYTOLOGY ORDERABLES Final Re sult from Last 3 Months or Most Recently Relevant to Health Maintenance Insurance [facility] [employer] [facility] [employer] Address: [address] [address] [place] [address] [facility] [employer] [facility] [employer] Address: [address] [address] [place] [address] [place] [address] Care Teams Aerospace Manager Relationship Specialty Start Date End Date Mary De Jesus NP [address] [place] [id number] PCP - General Family Practice 11/05/20
--- OUTSIDE RECORDS SUMMARY | 2025-01-04 13:43 | XMS_ITS | Clinical Summary ---
Author Organization [facility] Address [address] [place] [address] Care Team Providers Care Household Appliance Repairer Name Role Phone Mary De Jesus NP Primary Care Provider [phone] Allergies No known active allergies Medications ascorbic [...] stockings Assessment & Plan (11/16/2024 7:56 AM HUMID SYSTEM OPERATOR): UncontrolIed Encouraged to continue PT as recommended Awaiting compression stockings Abnormal uterine bleeding 11/16/2024 Assessment & Plan (12/29/2024 11:03 AM CDT): Uncontrolled Previously referred to gynecology, encouraged to call and make an apppointment Assessment & Plan (11/16/2024 7:56 AM HUMID SYSTEM OPERATOR): Explained likely premenopausal Referral made to gynecology Bilateral groin pain 11/16/2024 Assessment & Plan (12/29/2024 11:04 AM CDT): Controlled Continued on meloxicam Assessment & Plan (11/16/2024 7:58 AM HUMID SYSTEM OPERATOR): Reviewed xrays, CT scan, and venous doppler results of right LE w/patient Started on meloxicam Supportive care measures discussed Return precautions given Low ferritin 11/16/2024 Assessment & Plan (12/29/2024 10:47 AM CDT): Controlled Continued on ferrous sulfate daily Assessment & Plan (11/16/2024 8:01 AM HUMID SYSTEM OPERATOR): Controlled Continued on ferrous sulfate daily Severe obesity 11/15/2024 Assessment & Plan (12/29/2024 10:47 AM CDT): Worsened Encouraged to: Make healthy food choices, limiting intake of concentrated sweets, cholesterol, and saturated fat Monitor daily caloric intake and portion sizes Exercise most days of the week for a goal of at least 150 minutes of exercise per week Assessment & Plan (11/16/2024 7:54 AM HUMID SYSTEM OPERATOR): Improved Encouraged to: Make healthy food choices, [...] stockings Assessment & Plan (10/17/2024 3:05 PM HUMID SYSTEM OPERATOR): Clinically has some evidence of chronic venous [...] PM CDT): Acute Reviewed ER report from [facility] dated 06/16/2024 Ordered MRI right knee Dysesthesia [...] levothyroxine Assessment & Plan (11/16/2024 8:00 AM HUMID SYSTEM OPERATOR): Controlled Continued on levothyroxine Assessment & Plan [...] mind. Assessment & Plan (11/16/2024 8:01 AM HUMID SYSTEM OPERATOR): Discussed screening/vaccination (hepatitis B series) in depth and patient understands all risk and benefits associated with proposed therapies and currently declines, has been encouraged to call if changes mind. Assessment & Plan (12/05/2023 11:47 AM CDT): Recommended Shingrix series, considering Assessment & Plan (10/21/2022 5:13 AM HUMID SYSTEM OPERATOR): Tdap given. Recurrent major depression 10/20/2022 Assessment & Plan (12/29/2024 10:54 AM CDT): Controlled Continued on Lexapro, declined increase in dose of medicaton Advised if suicidal ideation or thoughts of harming self or others, to go to ER and/or call [phone] for assistance, agreed to contract for safety Assessment & Plan (11/16/2024 7:55 AM HUMID SYSTEM OPERATOR): Controlled per patient report Reviewed PHQ-9=5, DARLYN-7=2 [...] safety Assessment & Plan (10/21/2022 5:07 AM HUMID SYSTEM OPERATOR): Chronic, stable, controlled with medication-continued on Lexapro, refills sent to pharmacy per patient request. PHQ-9=5, DARLYN-7=1 Encounter for well woman abdelrahman arauz with routine gynecological exam 12/07/2020 Assessment & [...] 10:45 AM CDT): Controlled Continued vitamin D5 33926 IU every other week Assessment & Plan (11/16/2024 7:54 AM HUMID SYSTEM OPERATOR): Controlled Continued on vitamin D 16338 international units every other week Assessment & Plan (05/30/2024 12:59 PM CDT): Stable, controlled with prescription supplementation Continued on vitamin D 57037 international units every other week Assessment & Plan (12/03/2023 7:50 AM CDT): Stable, controlled with prescription supplementation Continued on vitamin D 42473 international units every other week Assessment & Plan (10/21/2022 5:21 AM HUMID SYSTEM OPERATOR): Chronic, stable, controlled with prescription supplement-encouraged to continue vitamin-D 19644 IU every other week with a meal. Ordered vitamin-D 25 OH to be done prior to next visit. Assessment & Plan (10/19/2021 7:32 AM HUMID SYSTEM OPERATOR): Chronic, stable, improved at last check, on weekly [id number] on weekly vitamin-D and ordered nonfasting vitamin [...] week Assessment & Plan (11/16/2024 7:54 AM HUMID SYSTEM OPERATOR): Improved Encouraged to: Make healthy food choices, [...] week Assessment & Plan (10/21/2022 5:12 AM HUMID SYSTEM OPERATOR): Chronic, worsening, without series comorbidity-encouraged to monitor [...] needed. Assessment & Plan (10/21/2022 5:11 AM HUMID SYSTEM OPERATOR): Reviewed past and current medical history, surgical [...] needed. Assessment & Plan (11/05/2020 11:41 AM HUMID SYSTEM OPERATOR): Reviewed past and current medical history, surgical [...] daily Assessment & Plan (11/16/2024 7:54 AM HUMID SYSTEM OPERATOR): Controlled with prior increase in dose of medication Continued on amlodipine 10 mg daily Assessment & Plan (10/17/2024 3:06 PM HUMID SYSTEM OPERATOR): Stable amlodipine Assessment & Plan (05/30/2024 1:18 [...] stability Assessment & Plan (10/21/2022 5:22 AM HUMID SYSTEM OPERATOR): Chronic, worsened compared to 1 year prior, not on medication-encouraged to monitor blood pressure when able and to decrease sodium in diet, not adding salt when cooking or at the table. Will return in 6 months for follow-up visit. Ordered CMP. Assessment & Plan (10/19/2021 7:30 AM HUMID SYSTEM OPERATOR): Chronicity unknown, however controlled without medication last 2 visits-will continue to monitor. Assessment & Plan (12/07/2020 1:01 PM CDT): Chronic, improved since last visit, not on medication, likely related to situational stressors and depression, also improved since last visit-will continue and discuss medication if/when appropriate. Assessment & Plan (11/05/2020 11:43 AM HUMID SYSTEM OPERATOR): New onset, possibility related to reported recent [...] 11/05/2020 Assessment & Plan (10/21/2022 5:10 AM HUMID SYSTEM OPERATOR): Ordered screening mammogram. Assessment & Plan (10/19/2021 7:28 AM HUMID SYSTEM OPERATOR): Ordered screening mammogram due on or after 11/08/2021. Assessment & Plan (11/05/2020 11:31 AM HUMID SYSTEM OPERATOR): Screening mammogram ordered, external order given, advised to call office within 1-2 weeks if she has not been notified of her results. Colon cancer screening 11/05/2020 Assessment & Plan (11/05/2020 11:30 AM HUMID SYSTEM OPERATOR): Cologuard ordered, informed to notify office if [...] exercise/week Assessment & Plan (10/17/2024 3:05 PM HUMID SYSTEM OPERATOR): Stable continue Crestor Assessment & Plan (12/03/2023 7:48 AM CDT): Chronic, with minimally elevated LDL (105), elevated, stable triglycerides (262) Continue rosuvastatin, declined addition of fenofibrate Increase exercise with focus of incorporating foods high in omega 3s into diet Assessment & Plan (10/21/2022 5:10 AM HUMID SYSTEM OPERATOR): Chronic, stable, uncontrolled at last check, on medication-encouraged to continue rosuvastatin 20 mg daily, refills sent to pharmacy per request, and low-fat/low-cholesterol diet high in fiber. Ordered lipid panel to be done prior to next visit. Assessment & Plan (10/19/2021 7:30 AM HUMID SYSTEM OPERATOR): Chronic, greatly improved upon recheck in 04/2021, [...] months. Assessment & Plan (11/05/2020 11:42 AM HUMID SYSTEM OPERATOR): Chronicity and stability unknown-ordered lipid panel. Resolved [...] 10/21/2022 Assessment & Plan (10/19/2021 7:49 AM HUMID SYSTEM OPERATOR): New problem, thinks related to 1 of [...] ENT Assessment & Plan (10/19/2021 7:28 AM HUMID SYSTEM OPERATOR): Acute-started on a Medrol Dosepak as directed [...] 04/13/2021 Assessment & Plan (11/05/2020 11:36 AM HUMID SYSTEM OPERATOR): Chronicity, stability unknown-will check vitamin D25OH. Polydipsia 11/05/2020 10/18/2021 Assessment & Plan (11/05/2020 11:36 AM HUMID SYSTEM OPERATOR): Chronic, stable-will check CMP. Fatigue 11/05/2020 10/18/2021 Assessment & Plan (11/05/2020 11:36 AM HUMID SYSTEM OPERATOR): Chronic, stable, attributes to working a lot, however has history of iron deficiency anemia-will check CBC and also TSH with reflex to T4. History of iron deficiency anemia 11/05/2020 10/18/2021 Assessment & Plan (11/05/2020 11:35 AM HUMID SYSTEM OPERATOR): Chronicity, stability unknown-will check CBC. Weight gain 11/05/2020 12/03/2023 Assessment & Plan (10/21/2022 5:22 AM HUMID SYSTEM OPERATOR): Chronic obesity, worsening-encouraged to monitor daily caloric intake and portion sizes and to exercise most days of the week. Ordered CMP and hemoglobin A1c. Assessment & Plan (11/05/2020 11:35 AM HUMID SYSTEM OPERATOR): Chronicity, stability unknown, but reports recent weight gain, states I've never weigh this much in my life -encouraged her to continue to eat a diet rich in fruits and vegetables and discussed scheduling an appointment with Dr. Gupta, specialist in Lifestyle Medicine. Ordered TSH with reflex to T4. Encounters Date Type Department Care Team Description 12/29/2024 10:30 AM CDT Office Visit [facility] Primary Care at [address] [place] [address] Mary De Jesus NP Annual physical [...] for malignant neoplasm of breast 12/08/2024 Telephone [facility] Primary Care at [address] [phone] Mary De Jesus QA SPECIALIST 11/24/2024 Telephone [facility] Primary Care at [address] [phone] Mary De Jesus QA SPECIALIST 11/22/2024 Telephone [facility] Primary Care at [address] [phone] Mary De Jesus QA SPECIALIST 11/22/2024 Telephone [facility] Primary Care at [address] [phone] Mary De Jesus QA SPECIALIST 11/16/2024 Telephone [facility] Primary Care at [address] [phone] Mary De Jesus QA SPECIALIST 11/15/2024 9:30 AM HUMID SYSTEM OPERATOR Office Visit [facility] Primary Care at [address] [phone] Mary De Jesus, QA SPECIALIST Bilateral groin pain (Primary Dx); Abnormal uterine bleeding; Moderate episode of recurrent major depressive disorder (HCC); Vitamin D deficiency; Hypertension, essential; Class 2 obesity due to excess calories without serious comorbidity with body mass index (BMI) of 37.0 to 37.9 in adult; Severe obesity (HCC); Lymphedema of right lower extremity; Subclinical hypothyroidism; Low ferritin; Need for vaccination 11/11/2024 3:15 PM HUMID SYSTEM OPERATOR [facility] Bldg 1 OP Physical Therapy [address] [place] [phone] Range, Elizabeth, ACCOUNT RESOLUTION ANALYST Edema of right lower leg (Primary Dx); Acute pain of right knee 11/11/2024 Plan of Care Documentation [facility] 1 OP Physical Therapy [address] [place] [phone] 11/09/2024 2:45 PM HUMID SYSTEM OPERATOR Therapy [facility] 1 OP Physical Therapy [address] [place] [phone] Bernadette Jack, PT Edema of right lower leg (Primary Dx); Acute pain of right knee 11/03/2024 9:45 AM [facility] 1 OP Physical Therapy [address] [place] [phone] Bernadette Jack, PT Edema of right lower leg (Primary Dx); Acute pain of right knee 11/01/2024 12:45 PM HUMID SYSTEM OPERATOR Therapy [facility] 1 OP Physical Therapy [address] [place] [phone] Range, Elizabeth, ACCOUNT RESOLUTION ANALYST Edema of right lower leg (Primary Dx); Acute pain of right knee 10/27/2024 2:45 PM [facility] Therapy [facility] 1 OP Physical Therapy [address] [place] [address] Range, Elizabeth, ACCOUNT RESOLUTION ANALYST Edema of right lower leg (Primary Dx); Acute pain of right knee 10/26/2024 Telephone [facility] Primary Care at [address] [phone] Mary De Jesus NP 10/25/2024 9:45 AM [facility] 1 OP Physical Therapy [address] [place] [phone] Bernadette Jack, PT Edema of right lower leg (Primary Dx); Acute pain of right knee 10/25/2024 Telephone [facility] Primary Care at [address] [phone] Mary De Jesus NP Additional Services Or Orders 10/21/2024 2:45 PM [facility] 1 OP Physical Therapy [address] [place] [phone] Range, Elizabeth, ACCOUNT RESOLUTION ANALYST Edema of right lower leg (Primary Dx); Acute pain of right knee 10/18/2024 3:15 PM [facility] 1 OP Physical Therapy [address] [place] [phone] Range, Elizabeth, ACCOUNT RESOLUTION ANALYST Edema of right lower leg (Primary Dx); Acute pain of right knee 10/14/2024 9:45 AM [facility] 1 OP Physical Therapy [address] [place] [phone] Bernadette Jack, PT Acute pain of right knee (Primary Dx); Edema of right lower leg 10/14/2024 9:15 AM [facility] 1 OP Physical Therapy [address] [place] [phone] Range, Elizabeth, ACCOUNT RESOLUTION ANALYST Acute pain of right knee (Primary Dx); Edema of right lower leg 10/12/2024 10:30 AM HUMID SYSTEM OPERATOR Office Visit [facility] Vascular at [address] [place] [phone] Rod Nance MD Chronic venous insufficiency (Primary Dx); Pain and swelling of right lower extremity; Lymphedema of right lower extremity; Mixed hyperlipidemia; Hypertension, essential 10/11/2024 8:30 AM [facility] 1 OP Physical Therapy [address] [place] [phone] Range, Elizabeth, ACCOUNT RESOLUTION ANALYST Acute pain of right knee (Primary Dx); Edema of right lower leg 10/07/2024 10:[address] [facility] 1 OP Physical Therapy [address] [facility] [address] [place] [address] Range, Elizabeth, ACCOUNT RESOLUTION ANALYST Acute pain of right knee (Primary Dx); Edema of right lower leg from Last 3 Months Immunizations Immunization Administration Dates Next Due Influenza, Unspecified 05/30/2024(Deferr ed: Patient Refused),06/14/2023(Deferred: Patient Refused),10/20/2022(Deferred: Patient Refused),06/14/2022(Deferred: Patient Refused) Tdap 10/20/2022 ZOSTER Recombinant 12/29/2024 Surgical History Surgery Date Site/Laterality Comments ROTATOR CUFF REPAIR Right TONSILLECTOMY FOOT SURGERY Left Medical History Medical History Date Comments Hx of migraines History of vitamin D deficiency 11/05/2020 Hyperlipidemia History of iron deficiency anemia 11/05/2020 Family History Medical History Relation Name Comments Lung cancer Brother Heart disease Maternal Grandfather Dementia Maternal Grandmother Depression Sister Relation Name Status Comments Brother Father Alive Maternal Grandfather Maternal Grandmother Mother Alive Sister Social History Tobacco Use Types Packs/Day Years [...] on file Legal Sex Female 12:47 AM HUMID SYSTEM OPERATOR Gender Identity Not on file Sexual Orientation Not on file Obstetrics History Para Term AB IAB SAB Ectopic Multiple Livin g Live Births 1 1 1 Date Outcome GA Total Labor Labor/2nd/3rd Weight Sex Type Anes PTL Arabella A1 A5 Name Clin Term Last Filed Vital Signs Vital Sign Reading [...] 12/29/2024 10:30 AM CDT Plan of Treatment Health Maintenance Due Date Last Done Comments Zoster Vaccine (2 of 2) 02/23/2025 12/29/2024 Breast Cancer Screening-Mammogram 03/07/2025 03/07/2024, 12/30/2021, 11/07/2020, Additional history exists Influenza Vaccine (Season Ended) 2025 Depression Screening 11/15/2025 11/15/2024, 11/15/2024, 12/03/2023, Additional history exists Cervical Cancer Screening 12/07/2025 12/07/2020 Regular Well Visit/Exam 18-64 12/29/2025 12/29/2024, 12/03/2023, 10/20/2022, Additional history exists Colon Cancer Screening-DNA Stool 01/04/2027 01/05/2024, 11/14/2020 DTaP/Tdap/Td Vaccine (2 - Td or Tdap) 10/20/2032 10/20/2022 Hepatitis B Screening Completed 08/30/2024 Hepatitis C Screening Completed 08/30/2024 Pneumococcal vaccine <65 Aged Out No longer eligible based on patient's age to complete this topic Procedures Procedure Name Priority Date/Time Associated Diagnosis Comments HEPATITIS C ANTIBODY Routine 08/30/2024 10:24 AM HUMID SYSTEM OPERATOR Encounter for hepatitis C screening test for [...] Hepatitis C antibody Blood (08/30/2024 10:24 AM HUMID SYSTEM OPERATOR) Hep C Ab NON-REACTI VE NON-REACT INOC[facility]IO [facility] Comment: HCV antibody was non-reactive. There is no laboratory evidence of HCV infection. In most cases, no further action is required. However, if recent HCV exposure is suspected, a test for HCV RNA (test code 81569) is suggested. For additional information please refer to http://education.[employer]/faq/DXH94j8 (This link is being provided for informational/ educational purposes only.) Blood 08/30/2024 10:2 4 AM HUMID SYSTEM OPERATOR 08/30/2024 10:27 AM HUMID SYSTEM OPERATOR Narrative [facility] - 08/31/2024 8:43 AM HUMID SYSTEM OPERATOR FASTING:YES FASTING: YES us Mary De Jesus NP LAB MICROBIOLOGY - GENERAL ORDER YESSY Final Result JYOTI VANDOLAYGabriela [address] [place] [address] * Screening Mammogram Bilateral W Ralph (03/07/2024 [...] age 40, based on guidelines of the [employer] (ACR Practice Parameter for the Performance of Screening and Diagnostic Mammography) and [employer]. For women [...] CDT) Stool DNA - Cologuard Negative Negative [employer] (CLIA #:[id number]) Comment: NEGATIVE TEST RESULT. A negative Cologuard [...] screened with both Cologuard and colonoscopy. (Gertrudis Elliott et al, N Engl J Med 2014;370(14):0329-2958) The normal value (reference range) for this assay is negative. COLOGUARD RE-SCREENING RECOMMENDATION: Periodic colorectal cancer screening is an important part of preventive healthcare for asymptomatic individuals at average risk for colorectal cancer. Following a negative Cologuard result, the [employer] and U.S. Multi-Society Task Force screening guidelines recommend a Cologuard re-screening interval of 3 years. References: [employer] Guideline for Colorectal Cancer Screening: https://www.cancer.org/cancer/tfwpv-zzjdii-ujhgns/upxwgungn-tybekgfrv-pqbcczj/ac s-rec ommendations.html.; Aroldo BADILLO, Kenny CASILLAS, Ari SERNA, Colorectal Cancer Screening: Recommendations for Physicians and Patients from the U.S. Multi-Society Task Force on Colorectal Cancer Screening , Am J Gastroenterology 2017; 112:7432-3701. TEST DESCRIPTION: Composite algorithmic analysis of stool [...] screened with both Cologuard and colonoscopy. (Gertrudis Weller. et al, N Engl J Med 2014;370(14):7578-5562.) Cologuard may produce a false negative or false positive result (no colorectal cancer or precancerous polyp present at colonoscopy follow up). A negative Cologuard test result does not guarantee the absence of CRC or advanced adenoma (pre-cancer). The current Cologuard screening interval is every 3 years. ([employer] and U.S. Multi-Society Task Force). Cologuard performance data in a 10,000 patient pivotal study using colonoscopy as the reference method can be accessed at the following location: www.[employer]/results. Additional description of the Cologuard test process, warnings and precautions can be found at www.cologuard.com. Stool 01/05/2024 9:20 AM CDT 01/06/2024 9:44 AM CDT Mary De Jesus QA SPECIALIST LAB BODY FLUIDS AND STOOLS ORDER YESSY Final Result [facility] (CLIA #:[id number]) [place] [address] * ThinPrep Pap with HPV (12/07/2020 11:40 AM CDT) Pap test 12/07/2020 11:4 0 AM CDT 12/10/2020 10:02 AM CDT Narrative 12/13/2020 10:09 AM CDT [facility] Department of Pathology [address] [place] [id number] Final Report with Addendum Patient Name: JAYDE QUINTANA Address: [address] [place] [address] Gender: F : 1970 (Age: 50) Service: Laboratory Location: Lab [facility] #: [id number] Patient Type: Ref Lab Taken: 12/07/2020 Received: 12/10/2020 Accessioned:: 12/11/2020 Reported: 12/13/2020 Physician(s): Anali Syed[facility]bedObed [facility] Diagnosis: Source of Specimen: Screening ThinPrep Imaged [...] determined by the Surgical Pathology Department at [facility] as part of an ongoing quality engineer medical device program and in compliance with federally mandated [...] characteristics determined by the Surgical Pathology Department [facility]. It has not been cleared or approved by the U. S. Food and Drug Administration. Mary De Jesus NP LAB CYTOLOGY ORDERABLES Final Re sult from Last 3 Months or Most Recently Relevant to Health Maintenance Insurance [facility] PLUS [facility] PLUS Care Teams Household Appliance Repairer Relationship Specialty Start Date End Date Mary De Jesus NP [address] [place] [id number] PCP - General Family Practice 11/05/20
== END 2025-01-04 12:50 | disposition home or self-care (01) ==
PROVIDERS: Emergency Provider Nurse Practitioner; PCP Family Medicine
DX: H66.001 Acute suppurative otitis media without spontaneous rupture of ear drum, right ear (principal); I10 Essential (primary) hypertension; E78.00 Pure hypercholesterolemia, unspecified; M16.0 Bilateral primary osteoarthritis of hip; E03.9 Hypothyroidism, unspecified
CPT/HCPCS: 99213; G0463